=== PATIENT | female | born 1970 ===

== ENCOUNTER 2021-05-28 00:10 | Emergency (ER) | payer OTHER ==
[2021-05-28] MEDS ORDERED: HYDROmorphone 0.5 MG/0.5 ML Syringe IM ONE (00:46)
[2021-05-28] MEDS ORDERED: Ondansetron 4 MG Tab.DIS PO ONE (00:47)
[2021-05-28] MEDS ORDERED: methylPREDNISolone Sodium Succinate 40 MG/1 ML SDV IM ONE (00:47)
[2021-05-28] MEDS ORDERED: Ketorolac 30 MG/ML SDV ONE (01:02)
[2021-05-28] MEDS: Ketorolac 60 MG/2 ML SDV IM ONE ×2 (01:07→01:15)
== END 2021-05-28 01:30 | disposition home or self-care (01) ==
LOC: LL.ED 00:10
DX: S67.21XA Crushing injury of right hand, initial encounter (principal); W20.8XXA Other cause of strike by thrown, projected or falling object, initial encounter; Y99.0 Civilian activity done for income or pay
CPT/HCPCS: 96372; 99283; A9270-GY; J1170; J1885; J2920

== ENCOUNTER 2021-06-03 12:11 | Observation (INO) | payer OTHER ==
[2021-06-03] MEDS ORDERED: HYDROmorphone 0.5 MG/0.5 ML Syringe IVPUSH PRN (12:22)
[2021-06-03] MEDS ORDERED: Acetaminophen 325 MG Tab PO PRN (12:24)
[2021-06-03] MEDS ORDERED: Sodium Chloride 0.9% 1,000 ML IV SCH (12:30)
[2021-06-03] MEDS: Ketorolac 15 MG/ML SDV IVPUSH SCH ×2 (13:38→19:43)
[2021-06-03] MEDS: Ondansetron 4 MG/2 ML SDV IVPUSH SCH ×3 (13:38→19:42)
[2021-06-03] MEDS: Gabapentin 100 MG Cap PO SCH ×2 (13:39→19:41)
[2021-06-03 14:31] LABS: ANION GAP 7.9 meq/L (7-15); CHLORIDE,CL 104 mmol/L (98-107); SODIUM,NA 140 mmol/L (136-145)
[2021-06-03] MEDS: Sodium Chloride 0.9% 1,000 ML IV SCH (17:42)
[2021-06-03] MEDS: Sodium Chloride 0.9% 10 ML Syringe FLUSH PRN (19:44)
[2021-06-04] MEDS: Sodium Chloride 0.9% 10 ML Syringe FLUSH PRN ×4 (00:47→11:32)
[2021-06-04] MEDS: Ketorolac 15 MG/ML SDV IVPUSH SCH ×4 (00:48→23:04)
[2021-06-04] MEDS: Ondansetron 4 MG/2 ML SDV IVPUSH SCH ×3 (00:48→08:22)
[2021-06-04] MEDS: Sodium Chloride 0.9% 1,000 ML IV SCH (03:37)
[2021-06-04] MEDS: Gabapentin 100 MG Cap PO SCH (08:22)
[2021-06-04] MEDS ORDERED: HYDROmorphone 0.5 MG/0.5 ML Syringe IVPUSH PRN (10:04)
[2021-06-04] MEDS: DULoxetine 30 MG Cap PO SCH (11:01)
[2021-06-04] MEDS: Gabapentin 300 MG Cap PO SCH ×2 (11:29→18:14)
[2021-06-04] MEDS ORDERED: Pantoprazole 40 MG Vial ONE (14:04)
[2021-06-04] MEDS: Pantoprazole 40 MG Vial IVPUSH SCH (14:15)
[2021-06-04] MEDS: Acetaminophen/HYDROcodone 325-7.5 MG Tab PO PRN (19:29)
[2021-06-05 08:39] LABS: ANION GAP 9.4 meq/L (7-15); CHLORIDE,CL 105 mmol/L (98-107); SODIUM,NA 140 mmol/L (136-145)
[2021-06-05] MEDS: Sodium Chloride 0.9% 10 ML Syringe FLUSH PRN (09:00)
[2021-06-05] MEDS: Pantoprazole 40 MG Vial IVPUSH SCH (09:00)
[2021-06-05] MEDS: DULoxetine 30 MG Cap PO SCH (09:00)
[2021-06-05] MEDS: Gabapentin 300 MG Cap PO SCH ×2 (09:00→12:26)
[2021-06-05] MEDS: Acetaminophen/HYDROcodone 325-7.5 MG Tab PO PRN (09:01)
[2021-06-05] MEDS: Ketorolac 15 MG/ML SDV IVPUSH SCH (12:29)
== END 2021-06-05 12:40 | disposition home or self-care (01) ==
LOC: LL.MS 12:11
PROVIDERS: ADMIT Physician Assistant; ATTEND Physician Assistant
DX: S69.91XD Unspecified injury of right wrist, hand and finger(s), subsequent encounter (principal); T79.A11D Traumatic compartment syndrome of right upper extremity, subsequent encounter; G56.01 Carpal tunnel syndrome, right upper limb; R11.2 Nausea with vomiting, unspecified; R53.83 Other fatigue; E86.0 Dehydration; F41.9 Anxiety disorder, unspecified; E66.9 Obesity, unspecified; Z68.20 Body mass index [BMI] 20.0-20.9, adult; X58.XXXD Exposure to other specified factors, subsequent encounter
CPT/HCPCS: 36415; 80048; 80053; 82550; 85025; 86140; 96374; 96375; 96376; A9270-GY; C9113; G0378; J1170; J1885; J2405; J3490; J7030

== ENCOUNTER 2022-05-09 15:03 | Emergency (ER) | payer OTHER ==
[2022-05-09] MEDS ORDERED: Iopamidol 612 MG/ML 100 ML Bottle IVPUSH STA (15:21)
[2022-05-09] MEDS ORDERED: fentaNYL 50 MCG/ML SDV ONE (15:29)
[2022-05-09] MEDS ORDERED: Sodium Chloride 0.9% 10 ML Syringe FLUSH PRN (15:39)
[2022-05-09] MEDS: Sodium Chloride 0.9% 10 ML Syringe FLUSH PRN ×2 (15:40→15:41)
[2022-05-09] MEDS ORDERED: fentaNYL 50 MCG/ML SDV IVPUSH ONE (15:45)
[2022-05-09] MEDS ORDERED: Ondansetron 4 MG/2 ML SDV IVPUSH ONE (15:45)
[2022-05-09] MEDS ORDERED: Sodium Chloride 0.9% 1,000 ML IV ONE (15:46)
[2022-05-09 16:09] LABS: CHLORIDE,CL 104 mmol/L (98-107); SODIUM,NA 140 mmol/L (136-145)
[2022-05-09 16:10] LABS: ESTIMATED GFR 110 mL/min (>=60)
[2022-05-09] MEDS ORDERED: HYDROmorphone 1 MG/ML Syringe IVPUSH PRN (16:22)
[2022-05-09] MEDS ORDERED: Bacitracin Oint 1 GM U/D Packet TOP ONE (17:53)
[2022-05-09] MEDS ORDERED: Take Home: Acetaminophen/HYDROcodone 325-10 MG, 5 Tab Pack PO ONE (18:07)
[2022-05-09] MEDS: Bacitracin Oint 1 GM U/D Packet ONE ×2 (18:15→20:09)
== END 2022-05-09 19:20 | disposition home or self-care (01) ==
LOC: LL.ED 15:07
DX: M25.511 Pain in right shoulder (principal); M25.571 Pain in right ankle and joints of right foot; W17.89XA Other fall from one level to another, initial encounter
CPT/HCPCS: 36415; 70450; 71260; 72125; 73020-RT; 73090-RT; 73600-RT; 74177; 80053; 81003; 85025; 93005; 93010; 96361; 96374; 96375; 99284; 99284-25; A9270-GY; J1170; J2405; J3010; J3490; J7030; Q9967

== ENCOUNTER 2022-10-10 09:26 | Emergency (ER) | payer OTHER ==
[2022-10-10] MEDS ORDERED: Tetracaine HCl/PF 0.5% 4 ML Bottle EYEBOTH ONE (09:27)
[2022-10-10] MEDS ORDERED: Erythromycin Base 0.5% Ophth Oint 3.5 GM Tube EYEBOTH ONE (09:54)
[2022-10-10] MEDS ORDERED: traMADol 50 MG Tab PO ONE (09:58)
[2022-10-10] MEDS ORDERED: Ketorolac 30 MG/ML SDV IM ONE (09:58)
== END 2022-10-10 11:15 | disposition home or self-care (01) ==
LOC: LL.ED 09:26
DX: S05.01XA Injury of conjunctiva and corneal abrasion without foreign body, right eye, initial encounter (principal); S05.02XA Injury of conjunctiva and corneal abrasion without foreign body, left eye, initial encounter
CPT/HCPCS: 96372; 99283; A9270-GY; J1885; J3490

== ENCOUNTER 2022-10-11 23:45 | Emergency (ER) | payer OTHER ==
[2022-10-11 23:55] VITALS: PULSE 71
[2022-10-12] MEDS ORDERED: Tetracaine HCl/PF 0.5% 4 ML Bottle EYEBOTH ONE (00:19)
[2022-10-12] MEDS ORDERED: Tetracaine HCl/PF 0.5% 4 ML Bottle ONE (00:22)
[2022-10-12] MEDS ORDERED: Acetaminophen 500 MG Tab PO ONE (00:53)
[2022-10-12] MEDS ORDERED: Acetaminophen 500 MG Tab ONE (00:54)
[2022-10-12 01:14] VITALS: BP 140/79
== END 2022-10-12 01:00 ==
LOC: LL.ED 23:45
DX: H57.13 Ocular pain, bilateral (principal)
CPT/HCPCS: 99283; 99284; A9270-GY; J3490